=== PATIENT | female | born 1995 | race Caucasian/White ===

== ENCOUNTER 2017-10-03 08:42 | Emergency (ER) | payer BC ==
--- NOTE | 2017-10-03 11:46 | ER ---
HISTORY OF PRESENT ILLNESS: The patient is a 22-year-old female who comes into the ER with a chief complaint of a sore throat. The patient had this for about 4 or 5 days. She does not have fevers or chills. She does not have a cough. No runny nose. No hoarseness. ALLERGIES: PENICILLIN AND SULFA. CURRENT MEDICATIONS: None. PHYSICAL EXAMINATION: GENERAL: She is alert, oriented, in no apparent distress. VITAL SIGNS: Temperature is 99.3, pulse is 100, blood pressure is 136/75, respirations are 12, O2 saturation was 100%. HEENT: TMs are normal. Nares are clear. Throat is mildly erythematous. No exudate. NECK: Supple. No nodes. LUNGS: Clear. HEART: Regular sinus rhythm. LABORATORY DATA: Rapid Strep is negative. ASSESSMENT: Pharyngitis, most likely viral. PLAN: Symptomatic treatment with Chloraseptic or saltwater gargles. The patient to return to clinic if this fails to resolve over the next few days or she develops any worsening symptoms. ROGERIO /[id number]
== END 2017-10-03 10:20 | disposition home or self-care (01) ==
LOC: LB.ED 08:42
DX: J02.9 Acute pharyngitis, unspecified (principal); Z88.0 Allergy status to penicillin; Z88.2 Allergy status to sulfonamides
CPT/HCPCS: 87430; 99283